=== PATIENT | male | born 1975 | race Caucasian/White ===

== ENCOUNTER → 2020-07-26 11:13 | Outpatient (CLI) | payer OTHER ==
[~2020-07-26 11:13] MED LIST: IBUPROFEN800 MG PO; ORPH100T PO
== END | disposition home or self-care (01) ==
LOC: LAB 11:13
PROVIDERS: ATTEND Obstetrics & Gynecology Gynecology
DX: Z20.828 Contact with and (suspected) exposure to other viral communicable diseases (principal)

== ENCOUNTER 2020-08-15 12:32 | Outpatient (CLI) | payer OTHER | END 2020-08-15 15:20 | disposition home or self-care (01) | LOC: PPH VACUNA 12:32 | DX: Z23 Encounter for immunization (principal) ==

== ENCOUNTER 2021-05-29 08:00 | Outpatient (CLI) | payer OTHER | END 2021-05-29 08:05 | disposition home or self-care (01) | LOC: PPH VACUNA 08:00 | PROVIDERS: ATTEND Emergency Medicine Pediatric Emergency Medicine | DX: Z23 Encounter for immunization (principal) ==